=== PATIENT | male | born 1965 | race African-American/Black ===

== ENCOUNTER 2020-07-29 13:12 | Emergency (ER) | payer MEDICAID ==
[~2020-07-29] VITALS: Ht 185.4 cm; Wt 92.5 kg
[2020-07-29] MEDS ORDERED: ONDANSETRON HCL 4MG/2ML INJ IV STA (14:22)
[2020-07-29] MEDS ORDERED: FOLIC ACID 1 MG, THIAMINE HCL 100 MG, MVI, ADULT NO.1 10 ML in DEXTROSE 5% WATER 1,000 ML IV ONE ×4 (14:30)
[2020-07-29 14:43] LABS: CLARITY URINE CLEAR (CLEAR); COLOR URINE YELLOW (YELLOW); KETONES URINE NEGATIVE (NEGATIVE); LEUKOCYTE ESTERASE URINE NEGATIVE (NEGATIVE); NITRITE URINE NEGATIVE (NEGATIVE); OCCULT BLOOD URINE NEGATIVE (NEGATIVE); PROTEIN URINE NEGATIVE (NEGATIVE); SPECIFIC GRAVITY URINE 1.011 (1.005-1.030)
[2020-07-29 14:45] LABS: HEMATOCRIT. 41.4 % (42.0-52.0); HEMOGLOBIN. 14.1 g/dL (14.0-18.0); MEAN CORPUSCULAR HEMOGLOBIN 34.4 pg (28.0-32.0); MEAN CORPUSCULAR VOLUME 101.3 fL (80.0-94.0); MEAN PLATELET VOLUME 8.7 fl (7.4-10.4); PLATELET 144 x1000/uL (130-400); RED BLOOD CELL COUNT 4.09 mill/uL (4.7-6.1); RED CELL DISTRIBUTION WIDTH 16.3 % (11.6-14.6)
[2020-07-29 15:15] LABS: ATYPICAL LYMPHOCYTES 1
[2020-07-29 15:16] LABS: PLATELET ESTIMATE NORMAL
[2020-07-29 15:31] LABS: *AMPHETAMINES SCREEN URINE PRESUMTIVE POSITIVE (NEGATIVE); *BARBITURATES SCREEN URINE NEGATIVE (NEGATIVE); *BENZODIAZEPINES SCREEN URINE NEGATIVE (NEGATIVE); *COCAINE SCREEN URINE NEGATIVE (NEGATIVE); CANNABINOID URINE SCREEN PRESUMTIVE POSITIVE (NEGATIVE); METHADONE URINE SCREEN NEGATIVE (NEGATIVE); OPIATES URINE SCREEN NEGATIVE (NEGATIVE); PHENCYCLIDINE URINE SCREEN NEGATIVE (NEGATIVE)
[2020-07-29 17:26] LABS: CHLORIDE 103 mEq/L (98-107)
[2020-07-29 17:37] LABS: CREATINE KINASE 413 IU/L (39-308)
[2020-07-29 17:52] LABS: ETHANOL BLOOD 306 mg/dL
[2020-07-29 21:32] VITALS: BP 140/65
== END 2020-07-29 21:35 | disposition left against medical advice (07) ==
LOC: ER 13:12
DX: F10.129 Alcohol abuse with intoxication, unspecified (principal); Y90.8 Blood alcohol level of 240 mg/100 ml or more; K70.10 Alcoholic hepatitis without ascites; E87.6 Hypokalemia; R74.8 Abnormal levels of other serum enzymes; F19.10 Other psychoactive substance abuse, uncomplicated; D72.819 Decreased white blood cell count, unspecified; I10 Essential (primary) hypertension
CPT/HCPCS: 36415; 70450; 71045; 72125; 80053; 80305; 80307; 80320; 80329; 81003; 82140; 82550; 83690; 85025; 93005; 96365; 96375; 99285; J2405; J3411; J3490; J7070; G0480